=== PATIENT | female | born 1990 | race Caucasian/White ===

== ENCOUNTER 2018-01-27 15:19 | Emergency (ER) | payer OTHER ==
[~2018-01-27] VITALS: Ht 149.9 cm; Wt 70.8 kg
[2018-01-27 16:41] LABS: HEMATOCRIT 41.2 % (37.0-47.0); HEMOGLOBIN 14.3 gm/dL (12.0-15.0); MCH 31.3 pg (26.0-34.0); MCHC 34.6 g/dL (28.0-37.0); MCV 90.4 fL (80.0-100.0); RBC 4.55 mil/uL (4.20-5.00); RDW 12.5 % (10.5-14.5); WBC 7.1 thou/uL (4.0-11.0)
[2018-01-27 16:51] LABS: CALCIUM 9.3 mg/dL (8.5-10.1); CREATININE 0.8 mg/dL (0.6-1.0); POTASSIUM 3.5 mmol/L (3.5-5.1)
[2018-01-27] MEDS ORDERED: SENNA-DOCUSATE1 EACH PO (18:58)
[2018-01-27] MEDS ORDERED: NORCO 5-325 TA1 EACH PO (18:58)
== END 2018-01-27 19:34 | disposition home or self-care (01) ==
LOC: ER 15:19
PROVIDERS: Emergency Medicine
DX: O20.0 Threatened abortion (principal); Z98.890 Other specified postprocedural states; Z3A.01 Less than 8 weeks gestation of pregnancy